=== PATIENT | female | born 1990 | race Caucasian/White ===

== ENCOUNTER 2017-12-22 12:31 | Emergency (ER) | payer OTHER ==
--- NOTE | 2017-12-22 13:07 | ED ---
General Adult HPI - General Chief complaint: ENT Stated complaint: cannot hear out of right ear Time Seen by Provider: 12/22/17 12:48 Source: patient, RN notes reviewed Mode of arrival: ambulatory Limitations: no limitations - History of Present Illness Initial comments: 27-year-old female presents to the emergency department for a chief complaint of left ear issues. Patient states her hearing is decreased in her left ear. Patient believes this has to do with congestion. She has had congestion for about one week. Patient states she saw her primary care provider yesterday who said she was fine and did not need any medications. However symptoms have worsened since then. Patient states she has also had a productive cough for the past 6 days. Patient denies any history of asthma. Patient denies any shortness of breath. Patient denies any fever or chills at home. Patient denies any other complaints at this time including shortness of breath, chest pain, abdominal pain, nausea or vomiting. - Related Data Previous Rx's Medication Instructions Recorded Azithromycin [Zithromax Z-pack] 250 mg PO DIRECTED #6 tab 12/22/17 Fluticasone Nasal [place] [Flonase 2 spr EA NOSTRIL DAILY #1 bottle 12/22/17 Nasal [place]] Allergies Allergy/AdvReac Type Severity Reaction Status Date / Time No Known Allergies Allergy Verified 12/22/17 12:34 Review of Systems ROS Statement: Those systems with pertinent positive or pertinent negative responses have been documented in the HPI. ROS Other: All systems not noted in ROS Statement are negative. Past Medical History Past Medical History: No Reported History History of Any Multi-Drug Resistant Organisms: None Reported Past Surgical History: No Surgical Hx Reported Past Anesthesia/Blood Transfusion Reactions: No Reported Reaction Past Psychological History: No Psychological Hx Reported Smoking Status: Never smoker Past Alcohol Use History: None Reported Past Drug Use History: None Reported General Exam Limitations: no limitations General appearance: alert, in no apparent distress Head exam: Present: atraumatic, normocephalic, normal inspection Eye exam: Present: normal appearance, PERRL, EOMI. Absent: scleral icterus, conjunctival injection, periorbital swelling ENT exam: Present: normal oropharynx, mucous membranes moist. Absent: TM's normal bilaterally (Left tympanic membrane appears erythematous.) Neck exam: Present: normal inspection. Absent: tenderness, meningismus, lymphadenopathy Respiratory exam: Present: normal lung sounds bilaterally. Absent: respiratory distress, wheezes, rales, rhonchi, stridor Cardiovascular Exam: Present: regular rate, normal rhythm, normal heart sounds. Absent: systolic murmur, diastolic murmur, rubs, gallop, clicks Neurological exam: Present: alert, oriented X3, CN II-XII intact Course Vital Signs 12/22/17 12:33 Temperature 99.6 F Pulse Rate 85 Respiratory 20 Rate Blood Pressure 108/60 O2 Sat by Pulse 97 Oximetry Medical Decision Making - Medical Decision Making 27-year-old female presents to the emergency department for decreased hearing in the left ear since this morning. Patient states this is likely due to congestion which she has had for about a week. Patient has also had a cough for about a week that is productive. Patient denies shortness of breath or asthma. Patient denies fever at home. Vitals within normal limits in the emergency department and patient is afebrile. On exam lungs were clear to auscultation bilaterally and oropharynx look within normal limits. Left tympanic membrane was erythematous. Right tympanic membrane was within normal limits. Patient appears in no distress and is happily sitting on the edge of bed. No history of asthma or smoking. X-ray was ordered of the chest which showed a consolidation within the lingula and is a correlate for pneumonia. Patient will be given a Z-Epi to treat the pneumonia and ear infection. She will return to the emergency Department if she develops high fevers or shortness of breath. She will follow-up with primary care in 1-2 days. Disposition Clinical Impression: Pneumonia, Otitis media Disposition: HOME SELF-CARE Condition: Good Instructions: Pneumonia (ED) Additional Instructions: Please return to the emergency department if you have worsening symptoms, high fever, or shortness of breath. Otherwise follow-up with primary care in 1-2 days. Please take antibiotic as directed and use nasal spray as directed. Prescriptions: Azithromycin [Zithromax Z-pack] 250 mg PO DIRECTED #6 tab Fluticasone Nasal [place] [Flonase Nasal [place]] 2 spr EA NOSTRIL DAILY #1 bottle Is patient prescribed a controlled substance at discharge?: No Referrals: Ruben Waite MD [Primary Care Provider] - 1-2 days Time of Disposition: 13:35
--- NOTE | 2017-12-22 13:14 | XR ---
EXAMINATION TYPE: XR chest 2V DATE OF EXAM: 12/22/2017 COMPARISON: NONE INDICATION: Cough congestion TECHNIQUE: Frontal and lateral views of the chest are obtained. FINDINGS: The heart size is normal. The pulmonary vasculature is normal. There is a consolidation within the lingula. Correlate for pneumonia. Follow-up can be performed as c linically indicated. IMPRESSION: 1. Consolidation within the lingula. Correlate for pneumonia.
[2017-12-22 13:45] VITALS: BP 98/63; PULSE 83; RESP 18; TEMP 98.8
== END 2017-12-22 13:45 | disposition home or self-care (01) ==
LOC: EC 12:31
DX: J18.9 Pneumonia, unspecified organism (principal); H66.92 Otitis media, unspecified, left ear
CPT/HCPCS: 71046; 99283

== ENCOUNTER 2017-12-29 13:10 | Emergency (ER) | payer OTHER ==
[2017-12-29 13:25] VITALS: BP 119/61; PULSE 77; RESP 18; TEMP 98.3
--- NOTE | 2017-12-29 14:10 | ED ---
General Adult HPI - General Chief complaint: ENT Stated complaint: Can not hear out of Lt ear Time Seen by Provider: 12/29/17 13:42 Source: patient, RN notes reviewed, old records reviewed Mode of arrival: ambulatory Limitations: no limitations - History of Present Illness Initial comments: 27-year-old female presents to the emergency department for a chief complaint of hearing loss in the left ear. Patient states she was seen in the emergency department a week or 2 ago for this and given a Z-Epi as well as nasal spray. Patient states the Z-Epi did help a bit but the nasal spray has not helped. Patient also has congestion. Patient states that she feels her left ear is "plugged". Patient has not tried decongestants or antihistamines. Patient also saw family doctor 5 days ago who said her ear looked a little red but he was not worried about it. Patient also has some slight balance problems over the past week. She also mentioned this to her primary care provider who said it was related to the ear and would resolve. Patient denies any pain or discharge from the ear. Patient denies any pain behind the ear in the neck. No neck stiffness or tenderness. Patient denies any fevers or chills at home. Patient has no other complaints at this time including chest pain, shortness of breath, cough, headache, nausea or vomiting. - Related Data Home Medications Medication Instructions Recorded Confirmed Norgestimate-Ethinyl Estradiol 1 tab PO DAILY 12/29/17 12/29/17 [Trinessa Tablet] QUEtiapine [SEROquel] 50 mg PO HS 12/29/17 12/29/17 Sertraline HCl [Zoloft] 100 mg PO DAILY 12/29/17 12/29/17 busPIRone HCL 5 mg PO TID PRN 12/29/17 12/29/17 lamoTRIgine [lamoTRIgine ER] 200 mg PO DAILY 12/29/17 12/29/17 Previous Rx's Medication Instructions Recorded Loratadine [Claritin] 10 mg PO DAILY #20 tab 12/29/17 Allergies Allergy/AdvReac Type Severity Reaction Status Date / Time No Known Allergies Allergy Verified 12/29/17 13:42 Review of Systems ROS Statement: Those systems with pertinent positive or pertinent negative responses have been documented in the HPI. ROS Other: All systems not noted in ROS Statement are negative. Past Medical History Past Medical History: Pneumonia History of Any Multi-Drug Resistant Organisms: None Reported Past Surgical History: No Surgical Hx Reported Past Anesthesia/Blood Transfusion Reactions: No Reported Reaction Past Psychological History: No Psychological Hx Reported Smoking Status: Never smoker Past Alcohol Use History: None Reported Past Drug Use History: None Reported General Exam Limitations: no limitations General appearance: alert, in no apparent distress ENT exam: Present: normal exam, normal oropharynx, mucous membranes moist, TM's normal bilaterally (Left tympanic membrane appears within normal limits. It is non-erythematous, nonbulging, no punctures.) Neck exam: Present: normal inspection, full ROM. Absent: tenderness, meningismus, lymphadenopathy Respiratory exam: Present: normal lung sounds bilaterally. Absent: respiratory distress, wheezes, rales, rhonchi, stridor Cardiovascular Exam: Present: regular rate, normal rhythm, normal heart sounds. Absent: systolic murmur, diastolic murmur, rubs, gallop, clicks Course Vital Signs 12/29/17 13:22 Temperature 98.3 F Pulse Rate 77 Respiratory 18 Rate Blood Pressure 119/61 O2 Sat by Pulse 96 Oximetry Medical Decision Making - Medical Decision Making 27-year-old female presented to the emergency room for a chief complaint of "plugged ear." Patient has been congested for the past month. Patient was seen here and her family doctor. Last time I saw her in the emergency department I gave her a Z-Epi and nasal spray. Z-Epi seemed to help. Patient stopped taking the nasal spray. Vitals within normal limits and patient is afebrile. On exam did tympanic membrane is unremarkable. There is no puncture. No signs of infection. No pain in the mastoid when palpated or tragus. No pain in the neck. Patient likely has eustachian tube dysfunction. She will be given Claritin and directed to continue the use of the nasal spray. She is referred to Dr. Heller for ENT evaluation. She will also follow up again with her primary care doctor in one to 2 days. Disposition Clinical Impression: Eustachian tube dysfunction Disposition: HOME SELF-CARE Condition: Good Instructions: Hearing Loss (ED) Additional Instructions: Please follow up with ENT in 1-2 days. Please return to the emergency department if you have any worsening symptoms or develops a fever. Continue to use nasal spray as directed as well as Claritin. Prescriptions: Loratadine [Claritin] 10 mg PO DAILY #20 tab Is patient prescribed a controlled substance at d/c from ED?: No Referrals: Ruben Waite MD [Primary Care Provider] - 1-2 days Karlos Branch DO [Doctor of Osteopathic Medicine] - 1-2 days Time of Disposition: 14:09
== END 2017-12-29 14:15 | disposition home or self-care (01) ==
LOC: EC 13:10
DX: H69.92 Unspecified Eustachian tube disorder, left ear (principal); R09.81 Nasal congestion; Z79.3 Long term (current) use of hormonal contraceptives; Z79.899 Other long term (current) drug therapy
CPT/HCPCS: 99283

== ENCOUNTER → 2022-04-15 | Outpatient (CLI) | payer OTHER ==
--- NOTE | 2022-04-25 05:38 | CE ---
CARDIAC ELECTROPHYSIOLOGY REPORT STUDY PERFORMED: A 48-hour Holter monitor. INDICATION FOR THE STUDY: Cardiac arrhythmia. The patient was monitored for 48 hours. The baseline rhythm appeared to be sinus mechanism. The patient did have multiple episodes of sinus tachycardia as well as sinus bradycardia. No significant sinus pause or sinus arrest seen. No advanced AV block seen. No significant arrhythmia overall noted. CONCLUSION: 1. This is a 48-hour event monitor. 2. The baseline rhythm is sinus mechanism. 3. The patient did have multiple episodes of sinus tachycardia and sinus bradycardia. 4. No significant sinus pause or sinus arrest. 5. There were multiple episodes of PVC noted. MMODL / IJN: [id number] /
--- NOTE | 2022-05-01 09:50 | EM ---
CARDIAC ELECTROPHYSIOLOGY REPORT STUDY PERFORMED: Holter Monitor INDICATION FOR THE STUDY: Cardiac arrhythmia The patient was monitored for 48 hours. The baseline rhythm appeared to be sinus mechanism. The patient did have multiple episodes of sinus tachycardia as well as sinus bradycardia. No significant sinus pause or sinus arrest seen. No advanced AV block seen. No significant arrhythmia overall noted. CONCLUSION: 1. This is a 48-hour event monitor. 2. The baseline rhythm is sinus mechanism. 3. The patient did have multiple episodes of sinus tachycardia and sinus bradycardia. 4. No significant sinus pause or sinus arrest. 5. There were multiple episodes of PVC noted. MTDD
== END | disposition home or self-care (01) ==
LOC: RADECHMAIN 08:03
PROVIDERS: ATTEND Family Medicine
DX: R00.0 Tachycardia, unspecified (principal); R00.1 Bradycardia, unspecified
CPT/HCPCS: 93225; 93226